=== PATIENT | male | born 1995 | race Caucasian/White ===

== ENCOUNTER 2022-08-06 06:57 | Emergency (ER) | payer MEDICAID, SELFPAY ==
[2022-08-06 06:59] VITALS: BP 174/107; PULSE 99; RESP 18; TEMP 37; O2SAT 100; BMI 42.3
--- NOTE | 2022-08-06 07:14 | CT_ITS ---
STUDY: CT ABDOMEN AND PELVIS WITH CONTRAST - URINARY TRACT REASON FOR EXAM: Male, 27 years old. Abdomen pain RADIATION DOSAGE (If Supplied By Facility): CTDIvol = ( 23.72 ) mGy, DLP = ( 1503.05 ) mGycm TECHNIQUE: IV 100mL [id number]-300 was administered. Transaxial images were obtained from the dome of the diaphragm to the symphysis pubis subsequent to intravenous contrast administration. Multiplanar coronal and sagittal images were reformatted. Individualized Dose Optimization Techniques Were Used For This CT. COMPARISON: FINDINGS: The visualized lung bases are unremarkable. The visualized portions of the heart are within normal limits. Normal liver. Normal gallbladder and extrahepatic biliary system. Normal spleen. Normal pancreas. Normal bilateral adrenal glands. Normal visualized stomach. Normal small intestine. Normal colon. The appendix is visualized and appears normal. Normal abdominal aorta. No retroperitoneal adenopathy. Normal right kidney. Normal left kidney. Normal urinary bladder. Normal abdominal wall. There are degenerative changes of the lumbar spine. CT/Abdomen/Pelvis W IV Cont ONLY IMPRESSION: No acute intra-abdominal process. Electronically Signed: Chitra Ballesteros MD at 8:39 EDT ,
--- NOTE | 2022-08-06 07:14 | US_ITS ---
STUDY: SCROTUM ULTRASOUND REASON FOR EXAM: Male, 27 years old. Left testicular pain. TECHNIQUE: Ultrasound evaluation of the scrotum was performed with color Doppler and static salas-scale imaging. COMPARISON: None. FINDINGS: RIGHT TESTICLE INTRATESTICULAR: There is a normal size of the right testicle. The right testicle measures 4.7 cm x 3.8 cm x 2.3 cm. There is a homogenous echotexture. There is normal arterial and normal venous vascularity. There is no demonstrated right testicular mass or cyst. EXTRATESTICULAR: The epididymis is normal in size. The epididymis head measures 1.7 cm x 0.7 cm x 0.7 cm. There is normal vascularity of the epididymis. There is no demonstrated epididymal cystic structure. There is no demonstrated hydrocele. There is no demonstrated varicocele. There is no demonstrated extratesticular mass or cyst. LEFT TESTICLE INTRATESTICULAR: There is a normal size of the left testicle. The left testicle measures 4.9 cm x 3 cm x 2.4 cm. There is a homogenous echotexture. There is normal arterial and normal venous vascularity. There is no demonstrated left testicular mass or cyst. EXTRATESTICULAR: The epididymis is normal in size. The epididymis head measures 1.4 cm x 1.4 cm x 1.2 cm. There is normal vascularity of the epididymis. There is no demonstrated epididymal cystic structure. There is no demonstrated hydrocele. There is no demonstrated varicocele. There is no demonstrated extratesticular mass or cyst. US/Testicular with Arterial Flow IMPRESSION: Normal bilateral testicles. Electronically Signed: Jae Kim MD at 9:14 EDT ,
[2022-08-06 07:22] LABS: Absolute Lymphocyte Count 2.37 X10^3/uL (0.83-4.51); Absolute Neutrophil Count 4.8 X10^3/uL (2.0-7.7); Basophil# 0.04 X10^3/uL; Basophil% 0.5 % (0-1); Eosinophil# 0.05 X10^3/uL; Eosinophils% 0.6 % (0-5); Hematocrit 50.7 % (40-54); Hemoglobin 17.5 g/dL (13.0-16.5); Lymphocyte # 2.37 X10^3/ul (0.83-4.51); Lymphocyte % 29.6 % (19-41); Mean Corp Hgb Conc 34.5 g/dL (32-36); Mean Corpuscular Hgb 30.1 pg (27.0-32.0); Mean Corpuscular Volume 87.3 fL (80-94); Mean Platelet Vol. 11.8 fl (6.2-12.0); Monocyte# 0.77 X10^3/uL; Monocyte% 9.6 % (0-10); NRBC Flagged by Analyzer 0 % (0-5); Neutrophil # 4.76 X10^3/uL (2.7-7.7); Neutrophil % 59.5 % (47-70); Platelet Count 244 K/mm3 (150-450); RBC Distribution Width CV 12.3 % (11.6-14.6); RBC Distribution Width SD 39.2 fl (35.1-43.9); Red Blood Count 5.81 M/mm3 (4.6-6.2)
--- NOTE | 2022-08-06 07:25 | EDS_ITS ---
HPI HPI - GI History of Present Illness Chief Complaint: Abd Pain Narrative Narrative: 27-year-old male past medical history of hypertension presents with left lower quadrant abdominal pain that he is had for the last few days. He states he was seen and evaluated at an outside facility, where he had CT performed and laboratory work looking for hernia. Since then, he has had increased pain mainly in the left lower quadrant. He denies any fevers or chills. He states that the time he had some burning in his abdomen for which she was given a GI cocktail. He is becoming more concerned because he has not had a bowel movement in 3 days. He denies any hematuria but states on occasion he has dysuria and burning with urination. Additionally, he states that when he touched his left testicle, he had pain and sensitivity. No previous abdominal [facility] Medical History Hypertension Home Medications NK 08/06/22 [History Last Taken Unknown] Allergy/AdvReac Type Severity Reaction Status Date / Time No Known Allergies Allergy Verified 08/06/22 07:03 Social History Smoking Status: Former smoker ROS ROS ED ROS Narrative Constitutional: No fever, no chills. HEENT: No sore throat. No neck pain. No loss of vision. No rhinorrhea. Cardiovascular: No chest pain. No palpitations. No pedal edema. Respiratory: No cough, no shortness of breath. Abdominal: Left lower quadrant abdominal pain. No nausea. No vomiting. Positive constipation, no bowel movement x3 days. Genitourinary: Positive burning with urination and dysuria. No hematuria. Left testicular pain. Musculoskeletal: No myalgias. No arthralgias. Neurologic: No headaches. No dizziness. No lightheadedness. Skin: No rash. No change in color. Psychiatric: No depression. No anxiety. EXAM Physical Exam Narrative Exam Narrative: Afebrile. Vital signs noted. HEENT: Normocephalic. Atraumatic. PERRL, EOMI. Neck soft and supple. No point tenderness or step off. Cardiovascular: Regular rate and rhythm. No murmurs, rubs, or gallops appreciated. Respiratory: No tachypnea. Lungs clear to auscultation bilaterally. Gastrointestinal: Mild tenderness to palpation left lower quadrant, abdomen soft with normoactive bowel sounds. No rebound or guarding. Genitourinary: Chaperoned testicular examination reveals no testicular tenderness or evidence of epididymitis. Neurological: Awake. Alert. Nonfocal, nonlateralizing. Skin: No rash. Normal color. No pallor. Musculoskeletal: No pedal edema. Full range of motion extremities. Const Vital Signs: 08/06/22 06:59 Temperature 98.6 F Temperature Source Oral Pulse Rate 99 Respiratory Rate 18 Blood Pressure 174/107 H Blood Pressure Mean 129 Pulse Ox 100 Oxygen Delivery Method Room Air MDM MDM MDM Narrative Medical decision making narrative: Concern for development of colitis or fecal obstruction. Given his left testicular pain, he may have epididymitis. Urinalysis and testicular ultrasound will be performed. I do feel that he does require repeat CT scan given his increasing pain to help rule out obstruction and to assess fecal burden. I reviewed the patient's laboratory work, he has a normal white count of 8.0, hemoglobin slightly hemoconcentrated at 17.5, hematocrit 50.7. Sodium slightly low at 134. He was bolused normal saline 1 L intravenously. LFTs show AST low at 13 with ALT normal at 22. Electrolytes are otherwise unremarkable with a BUN normal at 13 and creatinine 0.92. Urinalysis is negative for infection after review, I do not feel antibiotics are indicated. I reviewed the CT report of the abdomen and pelvis and there is no acute process, no fecal impaction or obstruction. I am unsure as to the cause of his left lower quadrant abdominal pain and no bowel movement for 3 days. I also reviewed his testicular ultrasound which shows no evidence of an acute process, no epididymitis. At this point in time, he was reassured. I feel he can be discharged safely home with follow-up. Return instructions to the emergency department were reviewed. Disposition is discharged home in stable condition. I do not feel he requires observation or admission. History & Record Review Discussion w/independent historian: Patient Additional record(s) reviewed:: Prior ED visit Lab Data Attestation: I reviewed the patient's lab results. Labs: Laboratory Results - last 24 hr 08/06/22 08/06/22 08/06/22 07:05 07:05 08:10 WBC 8.0 RBC 5.81 Hgb 17.5 H Hct 50.7 MCV 87.3 MCH 30.1 MCHC 34.5 RDW Std Deviation 39.2 RDW Coeff of Jayant 12.3 Plt Count 244 MPV 11.8 Immature Gran % (Auto) 0.200 Neut % (Auto) 59.5 Lymph % (Auto) 29.6 Grundy % (Auto) 9.6 Eos % (Auto) 0.6 Baso % (Auto) 0.5 Absolute Neuts (auto) 4.8 Absolute Lymphs (auto) 2.37 Nucleated RBC % 0 Sodium 134 L Potassium 3.6 Chloride 103 Carbon Dioxide 27.0 Anion Gap 4 L BUN 13 Creatinine 0.92 Estim Creat Clear Calc 134.72 Est GFR (MDRD) Af Amer 128 Est GFR (MDRD) Non-Af 106 BUN/Creatinine Ratio 14.1 Glucose 102 Calcium 9.8 Total Bilirubin 1.00 AST 13 L ALT 22 Alkaline Phosphatase 84 Total Protein 8.3 H Albumin 4.4 Globulin 3.9 Albumin/Globulin Ratio 1.1 Urine Color Yellow Urine Clarity Clear Urine pH 6.5 Ur Specific Montague 1.010 Urine Protein 15 H Urine Glucose (UA) Normal Urine Ketones Negative Urine Occult Blood Negative Urine Nitrite Negative Urine Bilirubin Negative Urine Urobilinogen Normal Ur Leukocyte Esterase Negative Urine RBC 0 SEEN Urine WBC 0 SEEN Ur Squamous Epith Cells 0-5 SEEN Urine Bacteria 0 SEEN Urine Mucus 0 SEEN Radiography Diagnostic Testing: Clinical Impression(s) from Imaging Studies Abdomen/Pelvis CT 08/06/22 07:14 IMPRESSION: No acute intra-abdominal process. Electronically Signed: Chitra Ballesteros MD at 8:39 EDT , Testicular Ultrasound 08/06/22 07:14 IMPRESSION: Normal bilateral testicles. Electronically Signed: Jae Kim MD at 9:14 EDT , Discharge Plan Triage Chief Complaint: Abd Pain ED Provider: Adalberto Daigle Dx/Rx/DC Orders Clinical Impression: Left testicular pain, Abdominal pain, Constipation, Dysuria Instructions: ED Constipation (Adult), ED Dysuria, Uncertain Cause (Adult), ED Abdominal Pain Unkn Cause Male..., ED Testicular Pain, Unclear Cause Prescriptions: No Action NK Primary Care Provider: TONY JIANG Referrals: Care Physician,No Primary [Non-Staff] - Activity Restrictions/Additional Instructions: Your imaging and laboratory work is grossly unremarkable today. There is not a known cause for your pain. Follow-up with your primary care provider. Return with new or worsening symptoms. Disposition Disposition: Home, Self Care
[2022-08-06] MEDS: 0.9% Normal Saline 1,000 ML 999 ML IV (07:30)
[2022-08-06 07:38] LABS: ALB/GLOB Ratio 1.1 RATIO (0.9-2.4); AST(SGOT) 13 U/L (15-37); Alanine Aminotransfer ALT/SGPT 22 U/L (16-61); Albumin, Serum 4.4 g/dL (3.2-5.0); Alkaline Phosphatase 84 U/L (45-117); Anion Gap 4 (5-15); BUN 13 mg/dL (7-18); BUN/Creat Ratio 14.1 RATIO (10-20); Calcium,Total 9.8 mg/dL (8.5-10.1); Chloride 103 mmol/L (98-107); Creatinine, Serum 0.92 mg/dL (0.70-1.30); EST Glomerular Filtration Rate 106 mL/min (>60); Est Glom Filt Rate - Afr Amer 128 mL/min (>60); Estimated Creatinine Clearance 134.72 ml/min; Globulin 3.9 g/dL (2.2-4.2); Glucose 102 mg/dL (74-106); Potassium 3.6 mmol/L (3.5-5.1); Protein, Total 8.3 g/dL (6.4-8.2); Sodium Level 134 mmol/L (136-145)
[2022-08-06 08:20] LABS: Bacteria 0 SEEN /hpf (None Seen); Mucous, Urine 0 SEEN /hpf (<or=2+); Red Blood Cells-Urine 0 SEEN /hpf (0-5); White Blood Cells 0 SEEN /hpf (0-5)
[2022-08-06 08:24] LABS: Color, Urine Yellow (Yellow); Glucose, Dipstick Normal (Normal); Ketone-Dipstick Negative (Negative); Leukocyte Esterase-Dipstick Negative /ul (Negative); Nitrite-Dipstick Negative (Negative); Occult Blood-Urine Negative /ul (Negative); Protein-Dipstick 15 mg/dl (Negative); Urine Bilirubin Dipstick Negative (Negative); Urine Clarity Clear (Clear); Urine Urobilinogen Normal (Normal); Urine pH 6.5 (5.0 - 8.0)
[2022-08-06 08:31] LABS: Squamous Epithelial Cells - UA 0-5 SEEN /hpf (0-5)
== END 2022-08-06 10:14 | disposition home or self-care (01) ==
PROVIDERS: Emergency Provider Emergency Medicine; Referring Provider Emergency Medicine; Visit Provider Emergency Medicine
DX: N50.812 Left testicular pain (principal); K59.00 Constipation, unspecified; Z87.891 Personal history of nicotine dependence; I10 Essential (primary) hypertension; R30.0 Dysuria
CPT/HCPCS: 74177; 76870; 80053; 81001; 85025; 93976; 96360; 99283; J7030; Q9967; A4216